=== PATIENT | female | born 1955 | race Hispanic/Latino ===

== ENCOUNTER 2018-05-17 07:03 | Outpatient (CLI) | payer OTHER | END 2018-05-17 07:04 | disposition home or self-care (01) | LOC: LAB 07:03 ==

== ENCOUNTER 2018-05-19 07:23 | Outpatient (CLI) | payer OTHER | END 2018-05-19 07:24 | disposition home or self-care (01) | LOC: RAD 07:23 ==

== ENCOUNTER 2018-07-02 11:03 | Outpatient (CLI) | payer OTHER | END 2018-07-02 11:04 | disposition home or self-care (01) | LOC: RAD 11:03 ==